=== PATIENT | male | born 1955 | race Caucasian/White ===

== ENCOUNTER 2020-05-27 14:51 | Observation (INO) ==
[2020-05-27] MEDS ORDERED: Ondansetron 4 MG/2 ML VIAL IVP ONE (15:33)
[2020-05-27] MEDS ORDERED: Isovue-370 500 ML BOTTLE IVP ONE (15:33)
[2020-05-27] MEDS ORDERED: 0.9 % Sodium Chloride 1,000 ML IVC ONE (15:33)
[2020-05-27] MEDS ORDERED: Morphine Sulfate 2 MG/ML SYRINGE IVP ONE ×2 (15:33→17:19)
[2020-05-27 15:53] LABS: Basophils % 0.3 %; Eosinophils % 0.3 %; Hematocrit 41.3 % (37.5-50.1); Hemoglobin 13.8 g/dL (12.9-16.9); Immature Granulocytes % 0.6 % (0-4); Lymphocytes # 0.9 K/mcL (0.6-4.6); Lymphocytes % 7.4 %; Mean Corpuscular HGB Conc 33.4 g/dL (31.6-35.5); Mean Corpuscular Hemoglobin 32.2 pg (28.0-33.3); Mean Corpuscular Volume 96.5 fL (83.0-100.0); Mean Platelet Volume 10.9 fL (9.4-12.4); Monocytes # 0.6 K/mcL (0.0-1.3); Monocytes % 4.6 %; Platelet Count 175 K/mcL (140-400); Red Blood Count 4.28 M/mcL (4.19-5.50); Red Cell Distribution Width 12.4 % (11.5-14.5); Segmented Neutrophils % 86.8 %; White Blood Count 12.7 K/mcL (4.3-11.1)
[2020-05-27 16:01] LABS: INR 1.1; Prothrombin Time 12.2 Seconds (9.4-12.1)
[2020-05-27 16:04] LABS: Alanine Aminotransferase 21 Units/L (7-52); Albumin 4.4 g/dL (3.5-5.7); Albumin/Globulin Ratio 1.8 (1.1-2.2); Alkaline Phosphatase 102 Units/L (34-104); Aspartate Amino Transferase 17 Units/L (13-39); BUN/Creatinine Ratio 16 (6-26); Bilirubin,Direct 0.1 mg/dL (0.0-0.2); Bilirubin,Indirect 0.3 mg/dL (0.0-1.0); Bilirubin,Total 0.4 mg/dL (0.3-1.0); Blood Urea Nitrogen 11 mg/dL (8-23); Calcium 9.6 mg/dL (8.6-10.3); Carbon Dioxide 27 mEq/L (23-29); Chloride 103 mEq/L (98-107); Globulin 2.5 g/dL (2.4-3.5); Glucose 119 mg/dL (70-105); Lipase 19 Units/L (11-82); Osmolality,Calculated 285 (280-300); Sodium 137 mEq/L (136-145); Total Protein 6.9 g/dL (6.4-8.9); Troponin I < 0.03 ng/mL (< 0.04); eGFR For African Americans > 60 (> 60); eGFR For Non-African Americans > 60 (> 60)
[2020-05-27] MEDS ORDERED: Piperacillin/Tazobactam 3.375 GM in 0.9 % Sodium Chloride Mini Bag 100 ML IVPB ONE (16:49)
[2020-05-27] MEDS ORDERED: SODIUM CHLORIDE 0.9% IVPB ONE (17:15)
[2020-05-27] MEDS ORDERED: MICRON FILTER SET IVPB ONE (17:15)
[2020-05-27] MEDS ORDERED: PHENYTOIN IVPB ONE (17:15)
[2020-05-27] MEDS ORDERED: Morphine Sulfate 2 MG/ML SYRINGE ONE (17:20)
[2020-05-27] MEDS ORDERED: Lidocaine -MPF 4% 5 ML AMPUL ONE (17:40)
[2020-05-27] MEDS ORDERED: *HR* Rocuronium Bromide 50 MG/5 ML VIAL ONE (17:40)
[2020-05-27] MEDS ORDERED: Ondansetron 4 MG/2 ML VIAL ONE (17:40)
[2020-05-27] MEDS ORDERED: Lidocaine -MPF 2% 2 ML VIAL ONE (17:40)
[2020-05-27] MEDS ORDERED: *HR* Propofol 200 MG/20 ML VIAL IVP ONE (17:41)
[2020-05-27] MEDS ORDERED: *HR* FentaNYL (PF) 100 MCG/2 ML VIAL ONE ×2 (17:41→18:41)
[2020-05-27] MEDS ORDERED: *HR* Midazolam HCl 2 MG/2 ML VIAL ONE (17:45)
[2020-05-27] MEDS ORDERED: cefOXitin 1,000 MG, 0.9 % Sodium Chloride 1,000 ML IR ONE (18:00)
[2020-05-27] MEDS ORDERED: Ketorolac 30 MG/ML VIAL ONE (18:42)
[2020-05-27] MEDS ORDERED: *HR* OxyCODONE Immed Rel 5 MG TABLET PO PRN (18:54)
[2020-05-27] MEDS ORDERED: Famotidine 20 MG/2 ML VIAL IVP ONE (18:54)
[2020-05-27] MEDS ORDERED: *HR* HYDROmorphone (PF) 1 MG/ML SYRINGE IVP PRN (18:54)
[2020-05-27] MEDS ORDERED: *HR* Labetalol 20 MG/4 ML SYRINGE IVP PRN (18:54)
[2020-05-27] MEDS ORDERED: *HR* HYDROmorphone 2 MG TABLET PO PRN (18:54)
[2020-05-27] MEDS ORDERED: *HR* Metoprolol 5 MG/5 ML VIAL IVP PRN (19:44)
[2020-05-27] MEDS: 0.9 % Sodium Chloride 1,000 ML IVC SCH (20:31)
[2020-05-27] MEDS: CarBAMazepine 100 MG TABLET PO SCH (20:35)
[2020-05-27] MEDS: *HR* OxyCODONE/APAP 5/325 TABLET PO PRN (21:19)
[2020-05-27] MEDS: Piperacillin/Tazobactam 3.375 GM in 0.9 % Sodium Chloride Mini Bag 100 ML IVPB SCH (23:57)
[2020-05-28] MEDS: *HR* OxyCODONE/APAP 5/325 TABLET PO PRN ×2 (05:57→13:24)
[2020-05-28] MEDS: Piperacillin/Tazobactam 3.375 GM in 0.9 % Sodium Chloride Mini Bag 100 ML IVPB SCH (08:27)
[2020-05-28] MEDS: CarBAMazepine 100 MG TABLET PO SCH (08:29)
[2020-05-28] MEDS ORDERED: lisinopriL 5 MG TABLET PO SCH (09:00)
[2020-05-28] MEDS ORDERED: Aspirin Enteric Coated 81 MG Tablet PO SCH (09:00)
[2020-05-28] MEDS: 0.9 % Sodium Chloride 1,000 ML IVC SCH (10:03)
[2020-05-28 14:30] VITALS: BP 126/74
== END 2020-05-28 14:55 | disposition home or self-care (01) ==
LOC: EMEROOARM 14:51 → 3ANU 14:51
PROVIDERS: ADMIT Surgery; ATTEND Surgery